=== PATIENT | male | born 1995 | race Caucasian/White ===

== ENCOUNTER 2018-03-16 18:47 | Emergency (ER) | payer OTHER ==
--- NOTE | 2018-03-16 18:58 | ER Report ---
History and Physical Time Seen By MD: 18:58 Hx. of Stated Complaint: Pt. had trout for dinner last night, and ever since then has had fish bone/bones caught in his throat. Discomfort on the right side of his throat with swallowing, pain 3/10. Denies SOB, difficulty eating or drinking. Came here for evaluation. HPI/ROS CHIEF COMPLAINT: Fish bone stuck in throat HISTORY OF PRESENT ILLNESS: this is a 22-year-old male who presents to the emergency department, concerned about a fishbone stuck in his throat.patient states he was eating fish last night and felt something get stuck in his throat. Patient states that he's been eating and drinking since then no difficulties swallowing. He does feel that there is something stuck in his right tonsil. No nausea vomiting. No chest pain or shortness of breath. REVIEW OF SYSTEMS: ENT: As above. Respiratory: No cough, no dyspnea. Cardiovascular: No chest pain, no palpitations. Gastrointestinal: No vomiting, no abdominal pain. Musculoskeletal: No back pain. Allergies: Coded Allergies: peanut (Verified Allergy, Severe, ANAPHYLAXIS, 03/16/18) Past Medical/Surgical History The patient has a past medical and surgical history of asthma. Reviewed Nurses Notes: Yes Constitutional Vital Sign - Last 24 Hours 03/16/18 18:53 Temp 98.5 Pulse 77 B/P (MAP) 138/87 Pulse Ox 96 O2 Delivery Room Air Physical Exam General Appearance: The patient is alert, has no immediate need for airway pro tection and no current signs of toxicity. Eyes: Pupils equal and round no injection. Throat: Mild erythema to the posterior oropharynx, mild right-sided tonsillar hypertrophy no exudates, no petechiae or purulent drainage. After 3 inspections of the throat no obvious foreign bodies were identified. I did a 3rd assessment of the posterior oropharynx and the right tonsil after Magic mouthwash is given, I did get a very extensive inspection, with minimal gag reflex, still no foreign bodies identified. Respiratory: Chest is non tender, lungs are clear to auscultation. Cardiac: regular rate and rhythm. Gastrointestinal: Abdomen is soft and non tender, no masses, bowel sounds normal. Musculoskeletal: Neck: Neck is supple and non tender. Extremities have full range of motion and are non tender. Skin: No rashes or lesions. DIFFERENTIAL DIAGNOSIS: After history and physical exam differential diagnosis was considered for form body, abrasion, abscess, tonsillitis. Medical Decision Making ED Course/Re-evaluation ED Course The patient was admitted to room. A history and physical were obtained. Di fferential diagnoses were considered. After serial evaluations of the posterior-inferior next, no foreign bodies were identified. No abrasions or petechial hemorrhages identified. Magic mouthwash was given in the ER, significantly improved after 1 dose of Magic mouthwash. Patient was given the rest of Magic mouthwash for home use, instructed to take 5 mL every 2 hours as needed for pain. He was also instructed to follow-up with student [facility] next week for reevaluation if no improvement, ultimately if this is a recurrent issue that he is to follow-up with Dr. Justice, the gear finisher. If things are not improving and getting worse patient will return to ER for reevaluation. Patient had no other questions or concerns at this time and was di scharged home. Decision to Disposition Date: Mar 16, 2018 Decision to Disposition Time: 19:40 Depart Departure Latest Vital Signs Vital Signs Date Time Temp Pulse Resp B/P (MAP) Pulse Ox O2 Delivery O2 Flow Rate FiO2 03/16/18 18:53 98.5 77 138/87 96 Room Air Impression: Primary Impression: Throat pain Condition: Improved Disposition: HOME OR SELF-CARE Patient Instructions: Esophageal Foreign Body (ED) Additional Instructions: There is no obvious foreign body identified in your throat. I believe your right tonsil was scratched by the fish bone, it does feel like there is something there however there is nothing obvious on inspection. Use the Magic mouthwash every 2 hours as needed for pain. Take ibuprofen or Tylenol as needed for pain. Follow up with [facility] next week for reevaluation if no improvement. Follow-up with Dr. Justice, gear finisher if you feel there is a persistent foreign body feeling. Return to the ER for any other concerns or worsening symptoms. GINA TAYLOR [employer] [employer] [facility] Mar 16, 2018 18:58
[2018-03-16 19:00] VITALS: BP 139/69
[2018-03-16] MEDS ORDERED: MAGIC MOUTHWASH 90 ML BTL PO ONE (19:10)
[2018-03-16] MEDS ORDERED: LIDOCAINE 2% VISC SLN 15ML UDC MM ONE (19:15)
[2018-03-16] MEDS ORDERED: MAG HYD/AL HYD/SIMETH 30ML UDC MM ONE (19:15)
== END 2018-03-16 20:04 | disposition home or self-care (01) ==
LOC: ER 18:50
DX: R07.0 Pain in throat (principal)
CPT/HCPCS: 99282